=== PATIENT | male | born 1975 | race Asian ===

== ENCOUNTER 2018-08-31 07:51 | Emergency (ER) | payer OTHER ==
[~2018-08-31] VITALS: Ht 170.2 cm; Wt 83.2 kg
[2018-08-31] MEDS ORDERED: IBUP-1114 PO (08:03)
[2018-08-31] MEDS ORDERED: CYCLOBENZAPRINE 10 MG TAB PO ONE (08:30)
[2018-08-31] MEDS ORDERED: KETOROLAC 60 MG/2 ML VIAL (J1885) IM ONE (08:30)
[2018-08-31] MEDS ORDERED: CYCL10TA PO (08:57)
[2018-08-31 09:21] VITALS: BP 120/84
== END 2018-08-31 09:28 | disposition home or self-care (01) ==
LOC: M ED 07:51
DX: M62.830 Muscle spasm of back (principal); I10 Essential (primary) hypertension; M47.816 Spondylosis without myelopathy or radiculopathy, lumbar region
CPT/HCPCS: 96372; 99283; J1885